=== PATIENT | male | born 1950 | race Caucasian/White ===

== ENCOUNTER 2018-04-15 08:40 | Inpatient (IN) | payer OTHER ==
[~2018-04-15] VITALS: Ht 172.7 cm; Wt 83.2 kg
[2018-04-15] MEDS ORDERED: SODIUM CHLORIDE 0.9%, 500ML IVBOLUS ONE (09:00)
[2018-04-15] MEDS ORDERED: SODIUM CHLORIDE FLUSH 10ML SYR IVF ONE (09:00)
[2018-04-15] MEDS ORDERED: SODIUM CHLORIDE 0.9% 1,000 ML IV ONE (09:08)
[2018-04-15] MEDS ORDERED: MORPHINE SULFATE 4 MG/ML, 1ML ONE (09:11)
[2018-04-15 09:22] LABS: BASOPHILS # (AUTO) 0.01 x10^3/uL (0-0.1); BASOPHILS % (AUTO) 0 % (0-1); EOSINOPHILS # (AUTO) 0.25 x10^3/uL (0-0.4); EOSINOPHILS % (AUTO) 2 % (1-7); LYMPHOCYTES # (AUTO) 3.32 x10^3/uL (1-3.4); LYMPHOCYTES % (AUTO) 26 % (22-44); MD NO; MEAN CORPUSCULAR HEMOGLOBIN 28.3 pg (27.5-34.5); MEAN CORPUSCULAR HGB CONC 32.9 g/dL (33.2-36.2); MEAN CORPUSCULAR VOLUME 85.9 fL (81-97); MEAN PLATELET VOLUME 7.8 fL (7.4-10.4); MONOCYTES # (AUTO) 0.83 x10^3/uL (0.2-0.8); MONOCYTES % (AUTO) 7 % (2-9); NEUTROPHILS # (AUTO) 8.42 x10^3/uL (1.8-6.8); NEUTROPHILS % (AUTO) 66 % (42-75); PLATELET COUNT 268 x10^3/uL (130-400); RED CELL DISTRIBUTION WIDTH 13.9 % (9.4-14.8)
[2018-04-15] MEDS ORDERED: lovastatin (09:24)
[2018-04-15] MEDS ORDERED: propanolol (09:24)
[2018-04-15] MEDS ORDERED: flomax (09:24)
[2018-04-15] MEDS ORDERED: ASPI-496 PO (09:24)
[2018-04-15] MEDS ORDERED: SODIUM CHLORIDE FLUSH 10ML SYR IVF PRN (09:30)
[2018-04-15 09:34] LABS: INTERNATIONAL NORMALIZED RATIO 1.02 (0.93-1.1); PROTHROMBIN TIME 10.8 Seconds (9.6-11.5)
[2018-04-15] MEDS ORDERED: MIDAZOLAM 1 MG/ML, 5ML ONE (09:34)
[2018-04-15] MEDS ORDERED: FENTANYL PF 100 MCG/2ML ONE (09:34)
[2018-04-15] MEDS ORDERED: TICAGRELOR 90 MG TABLET ONE (09:34)
[2018-04-15 09:35] LABS: ALANINE AMINOTRANSFERASE 18 U/L (12-78); ALBUMIN 3.6 g/dL (3.4-5.0); ANION GAP 14 mmol/L (5-15); CALCIUM 8.3 mg/dL (8.5-10.1); CHLORIDE 106 mmol/L (98-107); CREATININE 1.24 mg/dL (0.7-1.3)
[2018-04-15] MEDS ORDERED: HEPARIN 1,000 UNITS/ML, 10ML ONE (09:35)
[2018-04-15] MEDS ORDERED: VERAPAMIL 2.5 MG/ML, 2ML ONE (09:35)
[2018-04-15] MEDS ORDERED: NITROGLYCERIN 5 MG/ML, 10ML ONE (09:35)
[2018-04-15] MEDS ORDERED: BIVALIRUDIN 250 MG ONE ×2 (09:35→10:39)
[2018-04-15 09:40] LABS: ALKALINE PHOSPHATASE 58 U/L (45-117); BILIRUBIN,TOTAL 0.4 mg/dL (0.2-1.0); TOTAL PROTEIN 7.8 g/dL (6.4-8.2); TROPONIN I < 0.015 ng/mL (0.000-0.045)
[2018-04-15] MEDS ORDERED: MORPHINE SULFATE 4 MG/ML, 1ML IVPush ONE (10:00)
[2018-04-15] MEDS ORDERED: PHENYLEPHRINE 10 MG/ML ONE ×3 (10:12→10:45)
[2018-04-15] MEDS ORDERED: EPINEPHRINE SYRINGE 0.1 MG/ML, 10ML ONE (10:45)
[2018-04-15] MEDS ORDERED: PHENYLEPHRINE 20 MG in SODIUM CHLORIDE 0.9% 248 ML IV PRN ×2 (11:00→12:04)
[2018-04-15] MEDS ORDERED: EPINEPHRINE 1 MG in SODIUM CHLORIDE 0.9% 249 ML IV PRN ×2 (11:00→12:03)
[2018-04-15] MEDS ORDERED: ONDANSETRON 2MG/ML, 2ML ONE (11:43)
[2018-04-15] MEDS: ONDANSETRON 2MG/ML, 2ML IVPush PRN ×2 (11:44→18:21)
[2018-04-15] MEDS ORDERED: ONDANSETRON 2MG/ML, 2ML IVPush PRN (12:00)
[2018-04-15] MEDS ORDERED: FENTANYL PF 100 MCG/2ML IVPush PRN (12:00)
[2018-04-15 12:01] LABS: INTERNATIONAL NORMALIZED RATIO 2.68 (0.93-1.1); PROTHROMBIN TIME 27.4 Seconds (9.6-11.5)
[2018-04-15 12:05] LABS: ANION GAP 15 mmol/L (5-15); CALCIUM 7.1 mg/dL (8.5-10.1); CHLORIDE 109 mmol/L (98-107); CREATININE 1.24 mg/dL (0.7-1.3)
[2018-04-15 12:07] LABS: MEAN CORPUSCULAR HEMOGLOBIN 28.3 pg (27.5-34.5); MEAN CORPUSCULAR HGB CONC 33.1 g/dL (33.2-36.2); MEAN CORPUSCULAR VOLUME 85.4 fL (81-97); MEAN PLATELET VOLUME 8.3 fL (7.4-10.4); PLATELET COUNT 344 x10^3/uL (130-400); RED BLOOD COUNT 4.33 x10^6/uL (4.38-5.82); RED CELL DISTRIBUTION WIDTH 14.3 % (9.4-14.8)
[2018-04-15 12:14] LABS: ALBUMIN 2.8 g/dL (3.4-5.0)
[2018-04-15 12:25] LABS: MD YES
[2018-04-15 12:27] LABS: <PLATELET ESTIMATE> ADEQUATE; <PLT MORPHOLOGY> NORMAL PLT MORPH; <RBC MORPHOLOGY> NORMAL; BAND#(MANUAL) 1.11 x10^3/uL; BANDS%(MANUAL) 5 % (0-7); LYMPH#(MANUAL) 4.42 x10^3/uL (1-3.4); LYMPHS% (MANUAL) 20 % (22-44); MONOS#(MANUAL) 1.33 x10^3/uL (0.3-2.7); MONOS% (MANUAL) 6 % (2-9); SEG#(MANUAL) 15.25 x10^3/uL (1.8-6.8); SEGS% (MANUAL) 69 % (42-75)
[2018-04-15] MEDS ORDERED: SODIUM BICARBONATE 1 MEQ/ML, 50ML VIAL IVPush ONE (12:30)
[2018-04-15] MEDS ORDERED: DEXTROSE 4 GM TAB.CHEW PO PRN (12:30)
[2018-04-15] MEDS ORDERED: GLUCAGON 1 MG IM PRN (12:30)
[2018-04-15] MEDS ORDERED: DEXTROSE 50%, 50ML SYRINGE IVPush PRN (12:30)
[2018-04-15] MEDS ORDERED: MAGNESIUM SULFATE 3 GM in SODIUM CHLORIDE 0.9% 100 ML IV ONE (12:30)
[2018-04-15] MEDS: KSCALE TO 4.5 IV SCH ×2 (12:30→18:30)
[2018-04-15] MEDS ORDERED: EPINEPHRINE 1 MG/ML, 1ML ONE (12:31)
[2018-04-15] MEDS: SODIUM CHLORIDE 0.9% 1,000 ML IV SCH (12:42)
[2018-04-15] MEDS ORDERED: POTASSIUM CHLORIDE 40 MEQ in SODIUM CHLORIDE 0.9% 100 ML IV ONE (13:00)
[2018-04-15] MEDS: INSULIN LISPRO 100 UNITS/ML, PEN SQ-INSULIN SCH ×3 (13:14→21:52)
[2018-04-15] MEDS ORDERED: ALBUTEROL/IPRATROPIUM 2.5MG/0.5MG, 3 ML ONE (13:55)
[2018-04-15] MEDS: ALBUTEROL/IPRATROPIUM 2.5MG/0.5MG, 3 ML NPPB PRN (13:55)
[2018-04-15] MEDS ORDERED: EPINEPHRINE 2 MG in SODIUM CHLORIDE 0.9% 248 ML IV PRN (14:00)
[2018-04-15] MEDS ORDERED: SODIUM BICARB 8.4%, 50ML SYRINGE ONE (16:41)
[2018-04-15] MEDS ORDERED: SODIUM BICARB 8.4%, 50ML SYRINGE IVPush ONE (17:00)
[2018-04-15] MEDS ORDERED: EPINEPHRINE 4 MG in SODIUM CHLORIDE 0.9% 246 ML IV PRN (17:30)
[2018-04-15] MEDS: ALBUTEROL/IPRATROPIUM 2.5MG/0.5MG, 3 ML NPPB SCH (20:00)
[2018-04-15] MEDS ORDERED: POTASSIUM CHLORIDE PMX 100 ML IVPB ONE (20:00)
[2018-04-15] MEDS: ACETAMINOPHEN 325 MG TABLET PO PRN (21:46)
[2018-04-15] MEDS: TICAGRELOR 90 MG TABLET PO SCH (21:46)
[2018-04-15] MEDS: SODIUM CHLORIDE FLUSH 10ML SYR IVF SCH (21:47)
[2018-04-15] MEDS: MORPHINE SULFATE 4 MG/ML, 1ML IVPush PRN (23:13)
[2018-04-16] MEDS: KSCALE TO 4.5 IV SCH ×2 (00:30→06:30)
[2018-04-16] MEDS: SODIUM CHLORIDE 0.9% 1,000 ML IV SCH (01:20)
[2018-04-16] MEDS: ALBUTEROL/IPRATROPIUM 2.5MG/0.5MG, 3 ML NPPB SCH ×2 (01:36→18:57)
[2018-04-16] MEDS: MORPHINE SULFATE 4 MG/ML, 1ML IVPush PRN (03:18)
[2018-04-16] MEDS ORDERED: FUROSEMIDE 20 MG/2 ML IV ONE ×2 (04:00→15:30)
[2018-04-16] MEDS: ASPIRIN 81 MG TABLET EC PO SCH (06:19)
[2018-04-16 06:51] LABS: MEAN CORPUSCULAR HEMOGLOBIN 28.5 pg (27.5-34.5); MEAN CORPUSCULAR HGB CONC 33.3 g/dL (33.2-36.2); MEAN CORPUSCULAR VOLUME 85.7 fL (81-97); MEAN PLATELET VOLUME 7.9 fL (7.4-10.4); PLATELET COUNT 279 x10^3/uL (130-400); RED BLOOD COUNT 4.17 x10^6/uL (4.38-5.82); RED CELL DISTRIBUTION WIDTH 14.4 % (9.4-14.8)
[2018-04-16 07:01] LABS: ALANINE AMINOTRANSFERASE 34 U/L (12-78); ALBUMIN 2.5 g/dL (3.4-5.0); ANION GAP 10 mmol/L (5-15); CALCIUM 7.1 mg/dL (8.5-10.1); CHLORIDE 110 mmol/L (98-107); CREATININE 1.07 mg/dL (0.7-1.3)
[2018-04-16 07:09] LABS: HEMOGLOBIN A1C 7.6 % (4.2-6.3)
[2018-04-16 07:14] LABS: BASOPHILS # (AUTO) 0.05 x10^3/uL (0-0.1); BASOPHILS % (AUTO) 0 % (0-1); EOSINOPHILS % (AUTO) 0 % (1-7); LYMPHOCYTES # (AUTO) 1.87 x10^3/uL (1-3.4); LYMPHOCYTES % (AUTO) 11 % (22-44); MD SCAN; MONOCYTES % (AUTO) 6 % (2-9); NEUTROPHILS # (AUTO) 14.27 x10^3/uL (1.8-6.8); NEUTROPHILS % (AUTO) 83 % (42-75)
[2018-04-16 07:20] LABS: ALKALINE PHOSPHATASE 47 U/L (45-117); BILIRUBIN,TOTAL 0.3 mg/dL (0.2-1.0); CHOL/HDL RATIO 2.5; CHOLESTEROL, TOTAL 119 mg/dL (140-239); HDL CHOL % 40 % (26-37); HDL CHOLESTEROL (DIRECT) 48 mg/dL (40-60); LDL CHOLESTEROL,CALCULATED 49 mg/dL (54-169); TRIGLYCERIDES 108 mg/dL (50-200); VLDL CHOLESTEROL 22 mg/dL (0-25)
[2018-04-16] MEDS ORDERED: SODIUM CHLORIDE 0.9% 1,000 ML IV SCH (08:30)
[2018-04-16] MEDS: TICAGRELOR 90 MG TABLET PO SCH ×2 (08:55→20:00)
[2018-04-16] MEDS: INSULIN LISPRO 100 UNITS/ML, PEN SQ-INSULIN SCH ×4 (08:55→20:00)
[2018-04-16] MEDS: SODIUM CHLORIDE FLUSH 10ML SYR IVF SCH ×2 (08:55→19:59)
[2018-04-16] MEDS ORDERED: ATORVASTATIN 40 MG TABLET PO SCH (09:00)
[2018-04-16] MEDS ORDERED: TAMSULOSIN 0.4 MG CAP.ER.24H PO SCH (09:00)
[2018-04-16] MEDS: ALBUTEROL/IPRATROPIUM 2.5MG/0.5MG, 3 ML NPPB PRN ×2 (09:20→14:35)
[2018-04-16] MEDS ORDERED: CARVEDILOL 3.125 MG TABLET ONE (10:35)
[2018-04-16] MEDS ORDERED: CARVEDILOL 3.125 MG TABLET PO ONE ×2 (10:38→11:00)
[2018-04-16] MEDS ORDERED: CARVEDILOL 3.125 MG TABLET PO SCH (18:00)
[2018-04-16] MEDS: ACETAMINOPHEN 325 MG TABLET PO PRN (18:05)
[2018-04-16] MEDS: CARVEDILOL 3.125 MG TABLET PO SCH (18:06)
[2018-04-16] MEDS: ATORVASTATIN 40 MG TABLET PO SCH (20:00)
[2018-04-16] MEDS ORDERED: LORazepam 2 MG/ML, 1ML IVPush PRN (22:30)
[2018-04-17] MEDS: ASPIRIN 81 MG TABLET EC PO SCH (06:09)
[2018-04-17] MEDS: CARVEDILOL 3.125 MG TABLET PO SCH ×2 (06:09→18:03)
[2018-04-17] MEDS: ALBUTEROL/IPRATROPIUM 2.5MG/0.5MG, 3 ML NPPB SCH ×4 (06:55→18:34)
[2018-04-17 08:30] LABS: MEAN CORPUSCULAR HEMOGLOBIN 28.2 pg (27.5-34.5); MEAN CORPUSCULAR HGB CONC 33.2 g/dL (33.2-36.2); MEAN CORPUSCULAR VOLUME 85.1 fL (81-97); MEAN PLATELET VOLUME 8.1 fL (7.4-10.4); PLATELET COUNT 220 x10^3/uL (130-400); RED BLOOD COUNT 4.21 x10^6/uL (4.38-5.82); RED CELL DISTRIBUTION WIDTH 14.3 % (9.4-14.8)
[2018-04-17 08:39] LABS: ANION GAP 8 mmol/L (5-15); CALCIUM 7.6 mg/dL (8.5-10.1); CHLORIDE 103 mmol/L (98-107)
[2018-04-17 08:48] LABS: BASOPHILS # (AUTO) 0.04 x10^3/uL (0-0.1); BASOPHILS % (AUTO) 0 % (0-1); EOSINOPHILS # (AUTO) 0.02 x10^3/uL (0-0.4); EOSINOPHILS % (AUTO) 0 % (1-7); LYMPHOCYTES % (AUTO) 12 % (22-44); MD SCAN; MONOCYTES # (AUTO) 0.86 x10^3/uL (0.2-0.8); MONOCYTES % (AUTO) 6 % (2-9); NEUTROPHILS # (AUTO) 11.27 x10^3/uL (1.8-6.8); NEUTROPHILS % (AUTO) 82 % (42-75)
[2018-04-17] MEDS: SODIUM CHLORIDE FLUSH 10ML SYR IVF SCH ×2 (09:19→19:36)
[2018-04-17] MEDS: INSULIN LISPRO 100 UNITS/ML, PEN SQ-INSULIN SCH ×4 (09:19→19:37)
[2018-04-17] MEDS: FUROSEMIDE 20 MG/2 ML IV SCH (09:19)
[2018-04-17] MEDS: TICAGRELOR 90 MG TABLET PO SCH ×2 (09:19→19:37)
[2018-04-17] MEDS: ACETAMINOPHEN 325 MG TABLET PO PRN (18:04)
[2018-04-17] MEDS: ATORVASTATIN 40 MG TABLET PO SCH (19:37)
[2018-04-18] MEDS ORDERED: SODIUM CHLORIDE NASAL SPRAY 45ML BOTTLE NAS PRN (04:00)
[2018-04-18 04:29] LABS: CHLORIDE 104 mmol/L (98-107)
[2018-04-18 04:30] LABS: ANION GAP 10 mmol/L (5-15); CALCIUM 7.9 mg/dL (8.5-10.1); CREATININE 1.13 mg/dL (0.7-1.3)
[2018-04-18] MEDS: CARVEDILOL 3.125 MG TABLET PO SCH ×2 (04:49→18:01)
[2018-04-18] MEDS: ASPIRIN 81 MG TABLET EC PO SCH (04:50)
[2018-04-18] MEDS: ALBUTEROL/IPRATROPIUM 2.5MG/0.5MG, 3 ML NPPB SCH ×4 (07:00→21:10)
[2018-04-18] MEDS: TICAGRELOR 90 MG TABLET PO SCH ×2 (08:10→21:24)
[2018-04-18] MEDS: FUROSEMIDE 20 MG/2 ML IV SCH (08:10)
[2018-04-18] MEDS: INSULIN LISPRO 100 UNITS/ML, PEN SQ-INSULIN SCH ×4 (08:10→21:36)
[2018-04-18] MEDS: SODIUM CHLORIDE FLUSH 10ML SYR IVF SCH ×2 (08:11→21:24)
[2018-04-18 13:30] VITALS: BP 91/56
[2018-04-18 19:41] VITALS: BP 91/53
[2018-04-18] MEDS: ATORVASTATIN 40 MG TABLET PO SCH (21:24)
[2018-04-18] MEDS: ACETAMINOPHEN 325 MG TABLET PO PRN (21:24)
[2018-04-19 03:04] VITALS: BP 95/61
[2018-04-19 05:53] VITALS: BP 94/57
[2018-04-19] MEDS: ASPIRIN 81 MG TABLET EC PO SCH (05:53)
[2018-04-19] MEDS: CARVEDILOL 3.125 MG TABLET PO SCH ×2 (05:53→17:35)
[2018-04-19] MEDS: ALBUTEROL/IPRATROPIUM 2.5MG/0.5MG, 3 ML NPPB SCH ×4 (07:00→20:34)
[2018-04-19 07:37] VITALS: BP 93/56
[2018-04-19] MEDS: INSULIN LISPRO 100 UNITS/ML, PEN SQ-INSULIN SCH ×4 (07:50→20:46)
[2018-04-19] MEDS: SODIUM CHLORIDE FLUSH 10ML SYR IVF SCH ×2 (07:57→20:46)
[2018-04-19] MEDS: TICAGRELOR 90 MG TABLET PO SCH ×2 (07:57→20:46)
[2018-04-19 13:41] VITALS: BP 96/63
[2018-04-19 16:26] VITALS: BP 100/63
[2018-04-19] MEDS: SPIRONOLACTONE 25 MG TABLET PO SCH (16:27)
[2018-04-19 18:58] VITALS: BP 97/60
[2018-04-19] MEDS: ATORVASTATIN 40 MG TABLET PO SCH (20:46)
[2018-04-19] MEDS ORDERED: TEMAZEPAM 15 MG CAPSULE ONE (22:57)
[2018-04-19] MEDS: TEMAZEPAM 15 MG CAPSULE PO PRN (23:00)
[2018-04-20] MEDS: TEMAZEPAM 15 MG CAPSULE PO PRN ×3 (00:32→23:45)
[2018-04-20 01:23] VITALS: BP 84/51
[2018-04-20 05:52] LABS: BASOPHILS # (AUTO) 0.02 x10^3/uL (0-0.1); BASOPHILS % (AUTO) 0 % (0-1); EOSINOPHILS # (AUTO) 0.34 x10^3/uL (0-0.4); EOSINOPHILS % (AUTO) 4 % (1-7); LYMPHOCYTES # (AUTO) 1.95 x10^3/uL (1-3.4); LYMPHOCYTES % (AUTO) 21 % (22-44); MD NO; MEAN CORPUSCULAR HEMOGLOBIN 28.7 pg (27.5-34.5); MEAN CORPUSCULAR HGB CONC 34.1 g/dL (33.2-36.2); MEAN PLATELET VOLUME 7.9 fL (7.4-10.4); MONOCYTES # (AUTO) 0.78 x10^3/uL (0.2-0.8); MONOCYTES % (AUTO) 9 % (2-9); NEUTROPHILS # (AUTO) 6.13 x10^3/uL (1.8-6.8); NEUTROPHILS % (AUTO) 67 % (42-75); PLATELET COUNT 274 x10^3/uL (130-400); RED BLOOD COUNT 4.43 x10^6/uL (4.38-5.82); RED CELL DISTRIBUTION WIDTH 13.8 % (9.4-14.8)
[2018-04-20] MEDS: ASPIRIN 81 MG TABLET EC PO SCH (06:00)
[2018-04-20] MEDS ORDERED: ALBUTEROL/IPRATROPIUM 2.5MG/0.5MG, 3 ML NPPB PRN (07:00)
[2018-04-20] MEDS: INSULIN LISPRO 100 UNITS/ML, PEN SQ-INSULIN SCH ×4 (07:42→20:46)
[2018-04-20 08:04] VITALS: BP 95/63
[2018-04-20] MEDS: CARVEDILOL 3.125 MG TABLET PO SCH ×2 (09:43→17:49)
[2018-04-20] MEDS: TICAGRELOR 90 MG TABLET PO SCH ×2 (09:43→20:45)
[2018-04-20] MEDS: SODIUM CHLORIDE FLUSH 10ML SYR IVF SCH ×2 (09:43→20:46)
[2018-04-20 12:20] VITALS: BP 104/65
[2018-04-20] MEDS: SPIRONOLACTONE 25 MG TABLET PO SCH (12:22)
[2018-04-20 14:47] VITALS: BP 98/60
[2018-04-20 17:50] VITALS: BP 100/62
[2018-04-20] MEDS: ACETAMINOPHEN 325 MG TABLET PO PRN (17:55)
[2018-04-20 19:57] VITALS: BP 95/63
[2018-04-20] MEDS: ATORVASTATIN 40 MG TABLET PO SCH (20:45)
[2018-04-21 02:50] VITALS: BP 94/61
[2018-04-21 04:50] LABS: BASOPHILS # (AUTO) 0.03 x10^3/uL (0-0.1); BASOPHILS % (AUTO) 0 % (0-1); EOSINOPHILS # (AUTO) 0.55 x10^3/uL (0-0.4); EOSINOPHILS % (AUTO) 5 % (1-7); LYMPHOCYTES # (AUTO) 2.17 x10^3/uL (1-3.4); LYMPHOCYTES % (AUTO) 21 % (22-44); MD NO; MEAN CORPUSCULAR HEMOGLOBIN 28.8 pg (27.5-34.5); MEAN CORPUSCULAR HGB CONC 34.3 g/dL (33.2-36.2); MEAN CORPUSCULAR VOLUME 83.9 fL (81-97); MEAN PLATELET VOLUME 7.9 fL (7.4-10.4); MONOCYTES # (AUTO) 0.92 x10^3/uL (0.2-0.8); MONOCYTES % (AUTO) 9 % (2-9); NEUTROPHILS # (AUTO) 6.72 x10^3/uL (1.8-6.8); NEUTROPHILS % (AUTO) 65 % (42-75); PLATELET COUNT 298 x10^3/uL (130-400); RED BLOOD COUNT 4.44 x10^6/uL (4.38-5.82); RED CELL DISTRIBUTION WIDTH 13.8 % (9.4-14.8)
[2018-04-21 05:02] LABS: ANION GAP 8 mmol/L (5-15); CHLORIDE 107 mmol/L (98-107)
[2018-04-21 05:13] LABS: CREATININE 1.04 mg/dL (0.7-1.3)
[2018-04-21 06:08] VITALS: BP 95/61
[2018-04-21] MEDS: CARVEDILOL 3.125 MG TABLET PO SCH (06:10)
[2018-04-21] MEDS: ASPIRIN 81 MG TABLET EC PO SCH (06:10)
[2018-04-21] MEDS: INSULIN LISPRO 100 UNITS/ML, PEN SQ-INSULIN SCH (07:22)
[2018-04-21 08:14] VITALS: BP 105/71
[2018-04-21] MEDS: TICAGRELOR 90 MG TABLET PO SCH (08:38)
[2018-04-21] MEDS: SODIUM CHLORIDE FLUSH 10ML SYR IVF SCH (08:38)
[2018-04-21] MEDS: SPIRONOLACTONE 25 MG TABLET PO SCH (08:38)
[2018-04-21] MEDS ORDERED: CARV3.1212 PO (08:59)
[2018-04-21] MEDS ORDERED: ATOR40TA78 PO (08:59)
[2018-04-21] MEDS ORDERED: TICA90TA PO (08:59)
[2018-04-21] MEDS ORDERED: SPIR25TA PO (08:59)
== END 2018-04-21 10:45 | disposition home or self-care (01) | DRG 248 ==
LOC: ED 09:03 → EDIP 09:08 → ED 09:10 → CSU 10:14 → 5SO 04-18 13:33 → DCLOUNGE 04-21 10:20
PROVIDERS: ADMIT Internal Medicine Cardiovascular Disease; ATTEND Internal Medicine Cardiovascular Disease
PROC: 02703DZ Dilation of Coronary Artery, One Artery with Intraluminal Device, Percutaneous Approach (ICD-10-PCS; principal; 2018-04-15)
PROC: 4A023N7 Measurement of Cardiac Sampling and Pressure, Left Heart, Percutaneous Approach (ICD-10-PCS; 2018-04-15)
PROC: B2111ZZ Fluoroscopy of Multiple Coronary Arteries using Low Osmolar Contrast (ICD-10-PCS; 2018-04-15)
PROC: B2151ZZ Fluoroscopy of Left Heart using Low Osmolar Contrast (ICD-10-PCS; 2018-04-15)
PROC: B54BZZA Ultrasonography of Right Lower Extremity Veins, Guidance (ICD-10-PCS; 2018-04-15)
DX: I21.09 ST elevation (STEMI) myocardial infarction involving other coronary artery of anterior wall (principal); J96.00 Acute respiratory failure, unspecified whether with hypoxia or hypercapnia; R57.0 Cardiogenic shock; J81.0 Acute pulmonary edema; J18.9 Pneumonia, unspecified organism; D68.59 Other primary thrombophilia; E11.9 Type 2 diabetes mellitus without complications; E78.00 Pure hypercholesterolemia, unspecified; E78.5 Hyperlipidemia, unspecified; E87.6 Hypokalemia; I25.10 Atherosclerotic heart disease of native coronary artery without angina pectoris; I25.5 Ischemic cardiomyopathy; I49.3 Ventricular premature depolarization; J45.909 Unspecified asthma, uncomplicated; Z87.891 Personal history of nicotine dependence
CPT/HCPCS: 36415; 93458; 99285; J7620; 0399T; 71045; 71046; 80047; 80048; 80053; 80061; 82040; 82962; 83036; 83735; 83880; 84100; 84132; 84484; 85025; 85610; 85730; 87081; 93005; 93306; 94640; 94660; 99156; 99157; C1769; C1876; C1894; G0378; J0583; J1644; J2250; J2405; J3010; J3475; J3480; C1725; C1757; C1887; J0171; J1815; J1940; J2060; J2370; J7030; J7040; J7050; Q9967